=== PATIENT | male | born 1945 | race Caucasian/White ===

== ENCOUNTER → 2017-01-12 | Outpatient (REF) | payer MEDICARE | LOC: M LAB REF 17:37 | PROVIDERS: ATTEND Internal Medicine | DX: Z01.89 Encounter for other specified special examinations (principal) ==

== ENCOUNTER → 2018-07-27 | Outpatient (REF) | payer MEDICARE ==
[2018-07-27 18:30] LABS: FOLATE 16.5 NG/ML
== END ==
LOC: M LAB REF 17:06
PROVIDERS: ATTEND Internal Medicine
DX: R26.89 Other abnormalities of gait and mobility (principal)

== ENCOUNTER → 2021-07-29 | Outpatient (REF) | payer MEDICARE | LOC: M LAB REF 16:15 | PROVIDERS: ATTEND Internal Medicine | DX: G62.9 Polyneuropathy, unspecified (principal) ==

== ENCOUNTER → 2022-01-19 | Outpatient (REF) | payer MEDICARE ==
[2022-01-19 17:12] LABS: APPEARANCE, URINE MANUAL CLEAR (CLEAR); COLOR, URINE MANUAL YELLOW (YELLOW)
[2022-01-19 17:13] LABS: BILIRUBIN, URINE MANUAL NEGATIVE (NEGATIVE); BLOOD URINE MANUAL NEGATIVE (NEGATIVE); GLUCOSE, URINE (UA) MANUAL NEGATIVE (NEGATIVE); KETONE, URINE MANUAL NEGATIVE (NEGATIVE); LEUKOCYTE ESTERASE, URINE MAN NEGATIVE (NEGATIVE); NITRITE, URINE MANUAL NEGATIVE (NEGATIVE); PROTEIN, URINE MANUAL NEGATIVE (NEGATIVE); UROBILINOGEN, URINE MANUAL NORMAL (NORMAL)
== END ==
LOC: M LAB REF 16:40
PROVIDERS: ATTEND Internal Medicine
DX: Z01.818 Encounter for other preprocedural examination (principal); R39.9 Unspecified symptoms and signs involving the genitourinary system